=== PATIENT | female | born 2005 | race African-American/Black ===

== ENCOUNTER 2023-07-31 14:36 | Emergency (ER) | payer MEDICAID ==
[~2023-07-31] VITALS: Ht 167.6 cm; Wt 122.7 kg
[2023-07-31 16:13] LABS: Basophils # (auto) 0 10 ^3/uL (0-0.2); Basophils % (auto) 0.3 % (0.0-2.0); Eosinophils # (auto) 0.3 10 ^3/uL (0-0.8); Eosinophils % (auto) 3.1 % (0.0-7.0); Hematocrit 35.9 % (36.0-46.0); Hemoglobin 11.6 g/dL (12.2-16.2); Lymphocytes # (auto) 1.6 10 ^3/uL (0.4-5.4); Lymphocytes % (auto) 18.7 % (10.0-50.0); Mean Corpuscular Hemoglobin 24.5 pg (28.0-32.0); Mean Corpuscular Hgb Conc. 32.2 g/dL (32.0-36.0); Mean Corpuscular Volume 75.8 fL (80.0-100.0); Monocytes # (auto) 0.7 10 ^3/uL (0-1.3); Monocytes % (auto) 8.1 % (0.0-12.0); Neutrophils # (auto) 5.8 10 ^3/uL (1.6-8.6); Neutrophils % (auto) 69.8 % (37.0-80.0); Red Blood Cells 4.74 10^6/uL (4.0-5.20); Red Cell Distribution Width 18.5 % (11.8-14.3); White Blood Cell 8.4 10^3/uL (4.4-10.8)
[2023-07-31] MEDS: ALPRAZolam 0.5 MG TAB PO ONE (16:18)
[2023-07-31 16:29] LABS: INR 1.08 (0.9-1.15); Prothrombin Time 11.4 sec (9.3-11.8)
[2023-07-31 16:42] LABS: Alanine Aminotransferase 14 U/L (7-40); Albumin 4.3 g/dL (3.2-4.8); Alkaline Phosphatase 69 U/L (46-116); Anion Gap 11 (5-15); Aspartate Aminotransferase 11 U/L (13-40); BUN/Creatinine Ratio 15.8 (10.0-20.0); Bilirubin, Total 0.6 mg/dL (0.2-1.0); Blood Urea Nitrogen 12 mg/dL (9-23); Calcium 9.6 mg/dL (8.5-10.1); Carbon Dioxide 21 mmol/L (20-30); Chloride 107 mmol/L (98-107); Glucose 127 mg/dL (74-106); Magnesium 1.7 mg/dL (1.6-2.6); Potassium 3.7 mmol/L (3.5-5.1); Sodium 139 mmol/L (136-145); Total Protein 7.2 g/dL (5.7-8.2)
[2023-07-31 18:03] LABS: Urine Bacteria None Seen /hpf (None Seen)
[2023-07-31 19:06] LABS: Urine Blood Negative /uL (Negative); Urine Clarity Turbid (Clear); Urine Color Light-Yellow (Yellow); Urine Mucus FEW (None Seen); Urine Protein, UAD TRACE (Negative); Urine Specific Gravity 1.026 (1.001-1.035); Urine Urobilinogen Normal (Negative); Urine WBC 10 /hpf (0 - 5); Urine pH 5.5 (5.0-9.0)
[2023-07-31 20:26] VITALS: BP 146/79; PULSE 83; RESP 24; TEMP 98.7; O2SAT 98
== END 2023-07-31 18:47 | disposition home or self-care (01) ==
LOC: ER 14:36 → EDBD 14:36 → ER 18:47
DX: F41.9 Anxiety disorder, unspecified (principal)
CPT/HCPCS: 36415; 80053; 81001; 83735; 83880; 84484; 85025; 85610; 85730; 93005

== ENCOUNTER 2024-11-16 11:21 | Emergency (ER) | payer MEDICAID ==
[~2024-11-16] VITALS: Ht 165.1 cm; Wt 116.3 kg
--- NOTE | 2024-11-16 11:29 | ECG ---
[facility] Test Date: 2024-11-16 Test Time: 11:27:59 Pat Name: MANUELA NAM Department: ED Room: Gender: F [employer] Change Leader: henry : 2005 Requested By: TRUONG URBAN Order Number: [id number] Reading MD: Wesley Valentin Measurements Intervals [place] Rate: 90 P: 74 DC: 166 QRS: 52 QRSD: 89 T: 19 QT: 378 QTc: 463 Interpretive Statements Sinus rhythm Probable left atrial enlargement Electronically Signed On 11-18-2024 15:08:21 PDT by Wesley Valentin Please click the below link to view image of tracing.
[2024-11-16 11:40] VITALS: PULSE 96; RESP 18; O2SAT 100
--- NOTE | 2024-11-16 11:40 | ED.PDOC ---
History of Present Illness HPI Comments 19 y/o F, presents to the ED for CC of chest pain. Patient states, she has been experiencing substernal non-radiating chest pain with associated nausea and vomiting onset, today (11/16/24). Patient endorses, drinking alcohol and smoking marijuana last night (11/15/24). Patient denies shortness of breath, pal pitations, numbness, weakness, or abdominal pain. No other associated symptoms, modifiers, recent injuries or sick contacts present at this time. Chief Complaint: Chest Pain Time Seen by MD: 11:30 Primary Care Provider: [facility] Reviewed Notes: Nurses Notes, Medications, Allergies Allergies: Coded Allergies: NO KNOWN ALLERGIES (Unverified , 05/12/23) Home Meds Active Scripts Ondansetron Odt 4MG Tab (ZOFRAN PO) 4 Mg Tb, 4 MG PO Q8HP PRN for 5 Days, #15 TAB ODT TAB-DISSOLVE IN MOUTH, THEN SWALLOW Prov:TRUONG URBAN MD 11/16/24 Information Source: Patient Mode of Arrival: Ambulatory Severity: Moderate Timing: Minutes Duration: Since onset Prehospital treatment: None Past Medical History PAST MEDICAL HISTORY: Denies Surgical History: Denies all surgeries PRINCIPAL SYSTEMS ARCHITECT History: No Pertinent PRINCIPAL SYSTEMS ARCHITECT History Family History Family History: Unknown Social History Smoker: Non-Smoker Alcohol: Denies ETOH Use Drugs: Denies Drug Use Lives In: Home Constitutional: denies: chills, diaphoresis, fatigue, fever, malaise, sweats, weakness, others EENTM: denies: blurred vision, double vision, ear bleeding, ear discharge, ear drainage, ear pain, ear ringing, eye pain, eye redness, hearing loss, mouth pain, mouth swelling, nasal discharge, nose bleeding, nose congestion, nose pain, photophobia, tearing, throat pain, throat swelling, voice changes, others Respiratory: denies: cough, hemoptysis, orthopnea, SOB at rest, shortness of breath, SOB with excertion, stridor, wheezing, others Cardiovascular: denies: chest pain, dizzy spells, diaphoresis, Dyspnea on exertion, edema, irregular heart beat, left arm pain, lightheadedness, palpitations, PND, syncope, others Gastrointestinal: reports: nausea, vomiting; denies: abdomen distended, abdominal pain, blood streaked bowels, constipated, diarrhea, dysphagia, difficulty swallowing, hematemesis, melena, poor appetite, poor fluid intake, rectal bleeding, rectal pain, others Genitourinary: denies: abnormal vagina bleeding, burning, dyspareunia, dysuria, flank pain, frequency, hematuria, incontinence, pain, , vagina discharge, urgency, others Neurological: denies: dizziness, fainting, headache, left sided numbness, left sided weakness, numbness, paresthesia, pre-existing deficit, right sided numbness, right sided weakness, seizure, speech problems, tingling, tremors, weakness, others Musculoskeletal: denies: back pain, gout, joint pain, joint swelling, muscle pain, muscle stiffness, neck pain, others Integumetry: denies: bruises, change in color, change in hair/nails, dryness, laceration, lesions, lumps, rash, wounds, others Allergic/Immunocompromised: denies: Difficulty Healing, Frequent Infections, Hives, Itching, others Hematologic/Lymphatic: denies: anemia, blood clots, easy bleeding, easy bruising, swollen glands, others Endocrine: denies: excessive hunger, excessive sweating, excessive thirst, excessive urination, flushing, intolerance to cold, intolerance to heat, unexplained weight gain, unexplained weight loss, others Psychiatric: denies: anxiety, bipolar disorder, depression, hopeless, panic disorder, schizophrenia, sleepless, suicidal, others All Other Systems: Reviewed and Negative Physical Exam General Appearance: Mild Distress HEENT: Normal ENT Inspection, Pharynx Normal, TMs Normal Neck: Full Range of Motion, Non-Tender, Normal, Normal Inspection Respiratory: Chest Non-Tender, Lungs Clear, No Accessory Muscle Use, No Respira tory Distress, Normal Breath Sounds Cardiovascular: No Edema, No JVD, No Murmur, No Gallop, Normal Peripheral Pulses, Regular Rate/Rhythm Breast Exam: Deferred Gastrointestinal: No Organomegaly, Non Tender, No Pulsatile Mass, Normal Bowel Sounds, Soft Genitalia: Deferred Pelvic: Deferred Rectal: Deferred Extremities: No calf tenderness, Normal capillary refill, Normal inspection, Normal range of motion, Non-tender, No pedal edema Musculoskeletal : Apperance: Normal Neurologic: Alert, chiller hand II-XII nml as Tested, Motor Weakness, Normal Affect, Normal Mood, No Sensory Deficits Cerebellar Function: Normal Reflexes: Normal Skin: Dry, Normal Color, Warm Lymphatic: No Adenopathy Was a procedure done? Was a procedure done?: No EKG EKG : Pulse Rate (adult): 90 [place]: Normal Cardiac Rhythm: NSR Block: None Hypertrophy: LAE ST: Normal Differential Dx Considerations may include: DEHYDRATION, ELECTROLYTE IMBALANCE, GASTRITIS, ANXIETY X-Ray, Labs, Meds, VS Vital Signs Date Time Temp Pulse Resp B/P (MAP) Pulse Ox O2 Delivery O2 Flow Rate FiO2 11/16/24 11:41 90 11/16/24 11:40 96 18 100 Room Air* 0 21 11/16/24 11:27 90 11/16/24 11:26 98.3 96 18 146/94 (111) 100 98.3 11/16/24 11:26 98.3 96 18 146/94 100 98.3 Lab Test 11/16/24 12:33 11/16/24 11:36 Range/Units Troponin I High Sensitivity Pending < 3 L </=34 ng/L White Blood Count 6.7 4.4-10.8 10^3/uL Red Blood Count 5.01 4.0-5.20 10^6/uL Hemoglobin 13.5 12.2-16.2 g/dL Hematocrit 40.4 36.0-46.0 % Mean Corpuscular Volume 80.7 80.0-100.0 fL Mean Corpuscular Hemoglobin 27.0 L 28.0-32.0 pg Mean Corpuscular Hemoglobin Concent 33.4 32.0-36.0 g/dL Red Cell Distribution Width 15.4 H 11.8-14.3 % Platelet Count 474 H 140-450 10^3/uL Mean Platelet Volume 7.8 6.9-10.8 fL Neutrophils (%) (Auto) 67.5 37.0-80.0 % Lymphocytes (%) (Auto) 21.6 10.0-50.0 % Monocytes (%) (Auto) 7.9 0.0-12.0 % Eosinophils (%) (Auto) 2.6 0.0-7.0 % Basophils (%) (Auto) 0.4 0.0-2.0 % Neutrophils # (Auto) 4.5 1.6-8.6 10 ^3/uL Lymphocytes # (Auto) 1.4 0.4-5.4 10 ^3/uL Monocytes # (Auto) 0.5 0-1.3 10 ^3/uL Eosinophils # (Auto) 0.2 0-0.8 10 ^3/uL Basophils # (Auto) 0 0-0.2 10 ^3/uL Nucleated Red Blood Cells 0.1 % Sodium Level 140 136-145 mmol/L Potassium Level 4.4 3.5-5.1 mmol/L Chloride Level 105 98-107 mmol/L Carbon Dioxide Level 24 20-31 mmol/L Anion Gap 11 5-15 Blood Urea Nitrogen 11 9-23 mg/dL Creatinine 0.91 0.550-1.02 mg/dL Glomerular Filtration Rate Calc 92 >90 mL/min BUN/Creatinine Ratio 12.1 10.0-20.0 Serum Glucose 135 H 74-106 mg/dL Calcium Level 9.5 8.7-10.4 mg/dL Plasma/Serum Blood Alcohol < 3.0 <10 mg/dL Current Medications Medications (Trade) Dose Ordered Sig/Rossy Route Start Time Stop Time Status Last Admin Sodium Chloride 1,000 ml @ 1,000 mls/hr Q1H ONCE IVB 11/16/24 11:45 11/16/24 12:44 DC 11/16/24 11:52 Prochlorperazine Edisylate (Compazine Inj) 10 mg ONCE ONCE IV 11/16/24 11:45 11/16/24 11:46 DC 11/16/24 11:51 Pantoprazole Sodium (Protonix) 40 mg ONCE ONCE IV 11/16/24 11:45 11/16/24 11:46 DC 11/16/24 11:51 IV Hep-Lock was established The patient was given a 1 L bolus of normal saline The patient was given Compazine 10 mg IV push The patient was given Protonix 40 mg IV push The patient's CBC and chemistry panel are within normal limits The patient's 1st troponin level was negative The patient is being discharged at this time The patient was given substance use counseling The patient will follow up with the primary care doctor Time of 1ST Reevaluation: 12:00 Reevaluation 1ST: Unchanged Time of 2ND Reevaluation: 12:53 Reevaluation 2ND: Improved Patient Education/Counseling: Diagnosis, Treatment, Prognosis, Need For Follow Up Family Education/Counseling: No Family Present SEPSIS Sepsis Screen Date sepsis recognized/suspect: Nov 16, 2024 Time Sepsis recognized/suspect: 1130 Recent Procedure: No On Antibiotic Therapy: No Respiratory Rate >20: No Heart Rate >90: No Temp<36 C (96.8 F) or >38.3 C: No SBP <90 or MAP <65 mmHG: No New Acute Mental Status Change: No Is the patient on CPAP, BIPAP,: No Physician Orders Troponin-I Hs (11/16/24 12:22) Troponin-I Hs (11/16/24 14:22) Electrocardigram (11/16/24 12:22) Electrocardigram (11/16/24 14:22) Heplock Iv (11/16/24 11:36) Drug Screen (11/16/24 11:36) Vital Signs Date Time Temp Pulse Resp B/P (MAP) Pulse Ox O2 Delivery O2 Flow Rate FiO2 11/16/24 11:41 90 11/16/24 11:40 96 18 100 Room Air* 0 21 11/16/24 11:27 90 11/16/24 11:26 98.3 96 18 146/94 (111) 100 98.3 11/16/24 11:26 98.3 96 18 146/94 100 98.3 Laboratory Tests Test 11/16/24 11:36 White Blood Count 6.7 10^3/uL (4.4-10.8) Medications Medications Dose Ordered Sig/Rossy Route Start Time Stop Time Status Last Admin Dose Admin Pantoprazole Sodium 40 mg ONCE ONCE IV 11/16/24 11:45 11/16/24 11:46 DC 11/16/24 11:51 Prochlorperazine Edisylate 10 mg ONCE ONCE IV 11/16/24 11:45 11/16/24 11:46 DC 11/16/24 11:51 Sodium Chloride 1,000 ml @ 1,000 mls/hr Q1H ONCE IVB 11/16/24 11:45 11/16/24 12:44 DC 11/16/24 11:52 Departure 1 Departure Time of Disposition: 12:53 Impression: Primary Impression: Cannabinoid hyperemesis syndrome Disposition: 01 HOME / SELF CARE / HOMELESS Condition: Fair e-Prescriptions Ondansetron Odt 4MG Tab (ZOFRAN PO) 4 Mg Tb 4 MG PO Q8HP PRN for 5 Days, #15 TAB ODT TAB-DISSOLVE IN MOUTH, THEN SWALLOW Prov: TRUONG URBAN MD 11/16/24 Discharged With: Self Critical Care Note Critical Care Time?: No Stability Stability form required: No Heart Score Heart Score: Heart Score Response (Comments) Value History N/A 0 EKG N/A 0 Age N/A 0 Risk Factors N/A 0 Troponin N/A 0 Total 0 I personally scribed for TRUONG URBAN MD ([email or web address]) on 11/16/24 at 11:40. Electronically submitted by Queta Acosta ([email or web address]). I personally scribed for TRUONG URBAN MD ([email or web address]) on 11/16/24 at 11:41. Electronically submitted by Queta Acosta ([email or web address]). TRUONG URBAN MD Nov 16, 2024 11:40
[2024-11-16] MEDS: PROCHLORPERAZINE EDISYLATE 5 MG/ML 2ML VIAL IV ONE (11:51)
[2024-11-16] MEDS: PANTOPRAZOLE 40 MG/10 ML VIAL INJ IV ONE (11:51)
[2024-11-16] MEDS: SODIUM CHLORIDE 0.9% 1,000 ML IVB ONE (11:52)
[2024-11-16 12:06] LABS: Hematocrit 40.4 % (36.0-46.0); Hemoglobin 13.5 g/dL (12.2-16.2); Mean Corpuscular Hemoglobin 27.0 pg (28.0-32.0); Mean Corpuscular Volume 80.7 fL (80.0-100.0); Nucleated Red Blood Cells % 0.1 %
[2024-11-16 12:16] LABS: Chloride 105 mmol/L (98-107); Potassium 4.4 mmol/L (3.5-5.1); Sodium 140 mmol/L (136-145)
[2024-11-16 12:17] LABS: Anion Gap 11 (5-15); Carbon Dioxide 24 mmol/L (20-31)
[2024-11-16 12:18] LABS: Calcium 9.5 mg/dL (8.7-10.4)
[2024-11-16 12:23] LABS: BUN/Creatinine Ratio 12.1 (10.0-20.0); Blood Urea Nitrogen 11 mg/dL (9-23)
[2024-11-16 12:28] LABS: Glucose 135 mg/dL (74-106)
[2024-11-16] MEDS ORDERED: ZOFR4T PO (12:37)
[2024-11-16 12:57] VITALS: BP 146/94; PULSE 96; RESP 18; TEMP 98.3; O2SAT 100
[2024-11-16 13:59] LABS: Cannabinoid Screen, Urine Pos (NEGATIVE)
[2024-11-16 14:00] LABS: Amphetamine Screen, Urine Neg (NEGATIVE); Barbiturate Scree,Urine Neg (NEGATIVE); Benzodiazephine Screen, Urine Neg (NEGATIVE); Cocaine Screen, Urine Neg (NEGATIVE); Opiate Scree,Urine Neg (NEGATIVE); Phencyclidine Screen, Urine Neg (NEGATIVE)
== END 2024-11-16 13:20 | disposition home or self-care (01) ==
LOC: ER 11:21
DX: R11.16 Cannabis hyperemesis syndrome (principal); F12.90 Cannabis use, unspecified, uncomplicated
CPT/HCPCS: 36415; 80048; 80307; 80320; 84484; 85025; 93005; 96361; 96374; 96375; 99284; J0780; J2470; J7030